=== PATIENT | female | born 1985 | race Caucasian/White ===

== ENCOUNTER 2018-01-13 09:31 | Observation (INO) | payer BC ==
[2018-01-13 10:03] VITALS: BP 127/77; PULSE 76
[2018-01-13 10:26] LABS: ALBUMIN 3.6 g/dL (3.5-5.0); ALKALINE PHOSPHATASE 85 U/L (38-126); ANION GAP 12.9 MEQ/L (5-15); BLOOD UREA NITROGEN 8 mg/dL (7-17); CHLORIDE 107 mmol/L (98-107); Calcium 9.2 mg/dL (8.4-10.2); Carbon Dioxide 22 mmol/L (22-30); Creatinine 1 0.53 mg/dL (0.52-1.04); Glucose 90 mg/dL (74-106); Potassium 3.8 mmol/L (3.5-5.1); SGOT/AST 21 U/L (14-36); SGPT/ALT 21 U/L (0-35); SODIUM 138 mmol/L (137-145); Total Protein 6.4 g/dL (6.3-8.2); Uric Acid 4.1 mg/dL (2.6-6.0)
[2018-01-13 10:31] LABS: Hematocrit 33.1 % (35-47); Mean Cell Volume 96.5 fl (78-100); Mean Corpuscular Hgb Concent. 33.2 g/dl (32-36); Mean Platelet Volume 10.4 fl (6-9.5); Platelet Count 198 K/mm3 (150-450); Red Blood Count 3.43 M/mm3 (4.1-5.4); Red Cell Distribution Width 13.3 % (11.5-14.0); White Blood Count 9.1 K/mm3 (4.0-10.5)
== END 2018-01-13 11:00 | disposition home or self-care (01) ==
LOC: OB 09:31
PROVIDERS: ADMIT Family Medicine; ATTEND Family Medicine
DX: Z34.83 Encounter for supervision of other normal pregnancy, third trimester (principal)
CPT/HCPCS: 36415; 59025; 80053; 84550; 85027; G0378

== ENCOUNTER 2018-01-14 14:13 | Observation (INO) | payer BC ==
[2018-01-14] MEDS ORDERED: Sodium Chloride 0.9% 1000 ML 1,000 ML IV STA (14:33)
[2018-01-14 15:09] VITALS: O2SAT 98
[2018-01-14] MEDS ORDERED: Sodium Chloride 0.9% 1000 ML 1,000 ML ONE (17:41)
[2018-01-14] MEDS ORDERED: Sodium Chloride 0.9% 1000 ML 1,000 ML IV SCH (17:45)
[2018-01-14 18:35] LABS: Appearance CLEAR (CLEAR); Bilirubin NEGATIVE (NEGATIVE); Blood NEGATIVE Ery/ul (0-5); Glucose NEGATIVE (NEGATIVE); Ketones NEGATIVE (NEGATIVE); Leukocyte Esterase NEGATIVE (NEGATIVE); Nitrite NEGATIVE (NEGATIVE); Protein,Urine Dip NEGATIVE (Negative); Urobilinogen NORMAL mg/dL (0-1)
[2018-01-14 18:37] VITALS: BP 126/67; PULSE 75
--- NOTE | 2018-01-15 08:43 | XRAY ---
Indication: Evaluate cervical length. Limited transvaginal OB ultrasound performed to evaluate cervical length. Cervix is closed measuring 5 cm in length. Comment: Preliminary report was given.
== END 2018-01-14 18:53 | disposition home or self-care (01) ==
LOC: OB 14:13
PROVIDERS: ADMIT Family Medicine; ATTEND Family Medicine
DX: Z34.03 Encounter for supervision of normal first pregnancy, third trimester (principal)
CPT/HCPCS: 76815; 81002; G0378

== ENCOUNTER 2018-01-30 12:01 | Observation (INO) | payer BC ==
[2018-01-30 12:36] VITALS: PULSE 85
--- NOTE | 2018-01-30 13:57 | XRAY ---
Indication: -induced hypertension. Ultrasound biophysical profile study was performed. There is a single viable intrauterine with heart rate 134 BPM. Four-quadrant DMITRI is 7.3 cm. Largest amniotic pocket 2.6 cm. 2 points given for breathing, movements, tone, and qualitative amniotic fluid volume. Impression: Total biophysical profile score is 8 out of 8.
== END 2018-01-30 13:40 | disposition home or self-care (01) ==
LOC: OB 12:01
PROVIDERS: ADMIT Family Medicine; ATTEND Family Medicine
DX: Z34.03 Encounter for supervision of normal first pregnancy, third trimester (principal)
CPT/HCPCS: 76819; G0378; 59025

== ENCOUNTER 2018-02-04 11:19 | Observation (INO) | payer BC ==
[2018-02-04 12:00] VITALS: BP 129/66; PULSE 82
[2018-02-04 12:30] LABS: BASOPHIL % 0.2 % (0.0-0.4); Basophil (Absolute #) 0.02 (0-0.4); Eosinophil % 0.8 % (0.00-5.0); Eosinophil (Absolute #) 0.08 (0-0.5); Granulocyte Absolute (ANC) 7.23 (1.4-6.9); Granulocytes % 69.3 % (36.0-66.0); Hematocrit 33.3 % (35-47); Hemoglobin 11.1 gm/dl (12.0-16.0); Lymphocyte (Absolute #) 2.27 (1.0-4.6); Lymphocytes % 21.7 % (24.0-44.0); Mean Corpuscular Hgb Concent. 33.3 g/dl (32-36); Monocyte (Absolute #) 0.84 (0.0-1.3); Platelet Count 201 K/mm3 (150-450); Red Blood Count 3.47 M/mm3 (4.1-5.4); Red Cell Distribution Width 13.4 % (11.5-14.0); White Blood Count 10.4 K/mm3 (4.0-10.5)
--- NOTE | 2018-02-04 12:30 | XRAY ---
Indication: well-being. DMITRI. Ultrasound biophysical profile study was performed. There is again a single viable intrauterine with heart rate 138 BPM. Four-quadrant DMITRI is 7.9 cm, previously 7.3 cm. Largest amniotic pocket 3.4 cm. Umbilical cord S/D ratio is 2.2-3.3. 2 points given for breathing, movements, tone, and qualitative amniotic fluid volume. Impression: Total biophysical profile score is again 8 out of 8.
[2018-02-04 12:34] LABS: Mean Corpuscular Hemoglobin 31.9 pg (26-32)
[2018-02-04 13:25] LABS: ALBUMIN 3.4 g/dL (3.5-5.0); ALKALINE PHOSPHATASE 103 U/L (38-126); ANION GAP 13.4 MEQ/L (5-15); BLOOD UREA NITROGEN 9 mg/dL (7-17); CHLORIDE 106 mmol/L (98-107); Calcium 9.5 mg/dL (8.4-10.2); Carbon Dioxide 20 mmol/L (22-30); Creatinine 1 0.51 mg/dL (0.52-1.04); Glucose 125 mg/dL (74-106); Potassium 3.6 mmol/L (3.5-5.1); SGOT/AST 20 U/L (14-36); SODIUM 136 mmol/L (137-145); Total Protein 6.1 g/dL (6.3-8.2)
[2018-02-04 13:39] LABS: SGPT/ALT 20 U/L (0-35)
== END 2018-02-04 12:42 | disposition home or self-care (01) ==
LOC: UNDOADMOB 11:19 → MED SURG 11:19 → UNDODISOB 12:42
PROVIDERS: ADMIT Family Medicine; ATTEND Family Medicine
DX: Z34.03 Encounter for supervision of normal first pregnancy, third trimester (principal)
CPT/HCPCS: 36415; 76819; 80053; 85025; G0378; 59025